=== PATIENT | female | born 2000 ===

== ENCOUNTER 2025-09-04 20:35 | Inpatient (IN) ==
[2025-09-04] MEDS ORDERED: LIDOCAINE 1% LOCAL 20 ML VIAL INFIL PRN (20:39)
[2025-09-04 21:23] LABS: Hematocrit (blood only) 35.3 % (37.0-47.0); Hemoglobin 11.6 g/dL (12.0-16.0); Mean Corpuscular Hemoglobin 30.0 pg (25.0-34.0); Mean Corpuscular Volume 91.2 fL (80.0-100.0); Platelet Count 207 K/uL (130-400); RDW Standard Deviation 50.2 fL (36.4-46.3); Red Blood Count 3.87 M/uL (4.20-5.40); White Blood Count 6.20 K/ul (4.8-10.8)
[2025-09-04] MEDS: LACTATED RINGER'S 1,000 ML IV PRN (21:28)
[2025-09-04 21:31] LABS: Amphetamines+Metham, Urine Neg (Neg); MDMA (Ecstacy), Urine Neg (Neg); Marijuana, Urine Neg (Neg)
--- NOTE | 2025-09-04 22:19 | Anesthesiology Consultation ---
Date of Service September 04, 2025 Assessment & Plan Chart Review Chart Review: Patient NOT seen in Pre Admission Testing and Acceptable Risk for Labor Epidural Consults Requested none History Height/Weight Weight: 63.957 kg Allergies Allergy/AdvReac Type Severity Reaction Status Date / Time No Known Allergies Allergy Verified 09/04/25 20:45 Medications Home Medications Medication Instructions Recorded Confirmed Last Taken vits no.124-ferrous fum 1 tab PO DAILY 09/04/25 09/04/25 08/28/25 09:00 27 mg iron-folic acid 800 mcg tablet ( Vitamin) Active Medications Generic Name Dose Route Start Last Admin Trade Name Freq PRN Reason Stop Dose Admin Lactated Ringer's 1,000 mls @ 125 mls/hr 09/04/25 20:39 09/04/25 21:28 Lr IV 09/06/25 20:38 999 mls/hr .Q8H PRN Administration L&D Protocol Protocol Past Medical History Medical History History of chicken pox Past Family History Family History Mother Diabetes Denies family history of Ovarian cancer Breast cancer Colorectal cancer Past Surgical History Surgical History No history of previous surgery Social History Smoking Status: Never smoker Do You Dip or Chew Tobacco: No Hx Alcohol Use: No Hx Substance Use: No substance use type: does not use Physical Exam Vital Signs Last Vital Signs Temp 98.2 F 09/04/25 20:50 Pulse 71 09/04/25 20:50 Resp 18 09/04/25 20:50 BP 126/83 09/04/25 20:50 Testing Laboratory Results 09/04/25 20:53
[2025-09-04] MEDS ORDERED: ROPIVACAINE 0.5% PF 5 MG/ML 20 ML VIAL EPI PRN (22:21)
[2025-09-04] MEDS ORDERED: NALOXONE HCL 0.4 MG/1 ML VIAL/CARP IV PRN (22:21)
[2025-09-04] MEDS ORDERED: SODIUM CHLORIDE 0.9% PF INJ 10 ML VIAL EPI PRN (22:21)
[2025-09-04] MEDS ORDERED: fentANYL 2 MCG/ML BUPIVacaine 0.125%-NSS 100ML BAG EPI PRN (22:21)
[2025-09-04] MEDS ORDERED: NALOXONE HCL 1 MG in SODIUM CHLORIDE 0.9% 1,000 ML IV PRN (22:21)
[2025-09-04] MEDS ORDERED: NALBUPHINE HCL INJ 10 MG/ML AMP IV PRN (22:21)
[2025-09-04] MEDS ORDERED: LIDOCAINE 2% MPF LOCAL 5 ML VIAL EPI PRN (22:21)
[2025-09-04] MEDS ORDERED: SODIUM CHLORIDE 0.9% PF INJ 10 ML VIAL EPI STA (22:21)
[2025-09-04] MEDS ORDERED: BUPIVACAINE 0.25% PF 30 ML VIAL EPI PRN (22:21)
[2025-09-04] MEDS ORDERED: LIDOCAINE 2%/EPINEPHRINE 1:200,000 20 ML PF EPI STA (22:21)
[2025-09-04] MEDS ORDERED: ONDANSETRON INJ 2 MG/ML 2 ML VIAL IV PRN (22:21)
[2025-09-04] MEDS ORDERED: diphenhydrAMINE 50 MG/ML VIAL IV PRN (22:21)
[2025-09-04] MEDS: BUPIVACAINE 0.25% PF 30 ML VIAL ONE (23:02)
[2025-09-04] MEDS: LIDOCAINE 2%/EPINEPHRINE 1:200,000 20 ML PF ONE (23:02)
[2025-09-04] MEDS: fentANYL 2 MCG/ML BUPIVacaine 0.125%-NSS 100ML BAG ONE (23:04)
[2025-09-05] MEDS ORDERED: NURSING L&D Epidural Breakthrough Pain Update ONE (01:16)
--- NOTE | 2025-09-05 02:02 | Anesthesia Procedure Note ---
Date of Service September 05, 2025 Anesthesia Epidural Re-Dose Vital Signs Temp Pulse Resp BP Pulse Ox 98.6 F 97 H 18 141/85 H 100 09/05/25 01:18 09/05/25 01:57 09/05/25 01:18 09/05/25 01:46 09/05/25 01:57 Notes Pain Intensity: 7 Dilatation (cm): 8.0 Effacement (%): 100 Called by nursing to evaluate epidural as the patient is having increased pain. The epidural was re-dosed with the following medications (all medications via epidural route) after negative aspiration of the epidural catheter for CSF/HEME. 0.25% Bupivacaine (8ml) with 100 mcg Fentanyl After Epidural Re-Dose Mental Status: alert / awake / arousable Pain: improving with treatment Airway Patency, RR, SpO2: stable & adequate BP & HR: stable & adequate
[2025-09-05] MEDS: BUPIVACAINE 0.25% PF 30 ML VIAL EPI STA (02:03)
[2025-09-05] MEDS: OXYTOCIN 30 UNITS/NSS 30 UNITS/500 ML BAG IV PRN (02:56)
[2025-09-05] MEDS ORDERED: ACETAMINOPHEN 325 MG TAB PO PRN (03:04)
[2025-09-05] MEDS ORDERED: DIPHTHER/TETAN/PERTUS Vaccine (Tdap, Adol/Adult) 0.5mL IM ONE (03:04)
[2025-09-05] MEDS ORDERED: HYDROCORTISONE ACETATE 25 MG SUPP PR PRN (03:04)
[2025-09-05] MEDS ORDERED: BENZOCAINE 20% SPRY 85 APPLN/85 GM CAN EXT PRN (03:04)
[2025-09-05] MEDS ORDERED: IBUPROFEN 600 MG TAB PO PRN (03:04)
[2025-09-05] MEDS ORDERED: OXYTOCIN 30 UNITS/NSS 30 UNITS/500 ML BAG IV PRN (03:04)
--- NOTE | 2025-09-05 03:15 | Delivery Summary ---
Vaginal Delivery Summary Date of Service September 05, 2025 Vaginal Delivery Summary DIAGNOSES: 1. Alvarado intrauterine at 38w gestation. 2. Spontaneous onset of labor. 3. Group B Streptococcus Neg. 4. Late start to care PROCEDURE: Spontaneous vaginal delivery without laceration. SURGEON: Deloris Candelario MD. SINTERING PRESS OPERATOR: None. QUANTITATIVE BLOOD LOSS: 75 mL. COMPLICATIONS: None. PLACENTA: Spontaneous and intact with a 3-vessel cord. DISPOSITION: Stable to labor and delivery. DESCRIPTION: The patient pushed well and brought the head to in DOA position. The 's head was allowed to deliver with contraction force and no further active pushing, with the perineum protected during this time. There was a loose/reduced nuchal cord. The shoulders and body delivered without any difficulty, and the infant was placed on the maternal abdomen. It was vigorous and moving all extremities, and making respiratory efforts. The cord was doubly clamped by the MD and then cut. The placenta delivered spontaneously and was noted to be intact and with a 3VC. The cervix, vagina and perineum were examined and were found to be without defect requiring repair. The fundus was firm and lochia minimal immediately after delivery. [facility] [place] Vaginal Delivery Charge Vaginal Delivery Codes: 92091 global code for the antepartum, delivery, and post-
[2025-09-05] MEDS: SODIUM CHLORIDE 0.9% PF INJ 10 ML VIAL ONE (03:32)
[2025-09-05] MEDS ORDERED: INFLUENZA VACC TS2025-26(6m+)/PF (IIV3) 0.5mL Syr IM ONE (09:00)
[2025-09-05] MEDS: PRENATAL VITAMIN 1 TAB PO SCH (09:03)
[2025-09-05] MEDS: DOCUSATE SODIUM 100 MG CAP PO SCH (09:03)
--- NOTE | 2025-09-05 10:16 | Anesthesia Procedure Note ---
Date of Service September 05, 2025 Anesthesia Post Epidural Note Vital Signs Vital Signs: Temp Pulse Resp BP Pulse Ox O2 Del Method 36.6 C 94 H 18 117/78 97 Room Air 09/05/25 05:55 09/05/25 05:55 09/05/25 05:55 09/05/25 05:55 09/05/25 05:55 09/05/25 05:55 Pain Intensity Bilateral Abdomen: Pain Intensity: 0 Notes Mental Status: alert / awake / arousable Nausea / Vomiting: adequately controlled Pain: adequately controlled Airway Patency, RR, SpO2: stable & adequate BP & HR: stable & adequate Hydration State: stable & adequate Neuraxial Anesthesia: was administered and sensory block is resolving Anesthetic Complications: no major complications apparent Epidural: Removed without complications and With tip intact
[2025-09-05 22:59] VITALS: O2SAT 99
[2025-09-06 06:45] LABS: Hematocrit (blood only) 31.5 % (37.0-47.0); Hemoglobin 10.2 g/dL (12.0-16.0); Mean Corpuscular Hemoglobin 29.8 pg (25.0-34.0); Mean Corpuscular Volume 92.1 fL (80.0-100.0); Platelet Count 170 K/uL (130-400); RDW Standard Deviation 51.5 fL (36.4-46.3); Red Blood Count 3.42 M/uL (4.20-5.40); White Blood Count 6.69 K/ul (4.8-10.8)
--- NOTE | 2025-09-06 09:21 | Obstetrical Progress Note ---
Date of Service September 06, 2025 Assessment & Plan (1) Encounter for assessment: Plan Plan d/c home. Instructions reviewed with hospital medicine director. PP vist at 6 weeks. Will need to have SS come by prior to d/c to assess needs. Day #:: 2 Subjective Ambulation: ambulating normally Voiding: no voiding problems Passing Gas:: Yes Diet Tolerance:: regular diet Lochia:: Small Feeding Type:: breast feeding System Development Manager used for interview. She is feeling well and ready to be d/c. Has had limited pnc with us. Physical Exam Constitutional WD/WN, vitals as above Cardiovascular Extremities: no calf tenderness and no edema Gastrointestinal (Abdomen) soft, nt, nd, ff/nt at u Psychiatric A+Ox3, euthymic affect Results & Data Vital Signs (Past 12 Hours) Vital Signs Temp Pulse Resp BP Pulse Ox O2 Del Method 09/05/25 22:58 36.8 C 81 16 125/82 99 Room Air
[2025-09-06 09:56] VITALS: BP 121/79; RESP 18; TEMP 97.3
[2025-09-06 10:43] VITALS: PULSE 94
== END 2025-09-06 11:30 | disposition home or self-care (01) | DRG 807 ==
LOC: OPB 20:35 → 4S1 20:36 → 4E2 09-05 06:02